=== PATIENT | male | born 1990 | race Caucasian/White ===

== ENCOUNTER 2018-03-05 17:46 | Inpatient (IN) | payer BC ==
[~2018-03-05] VITALS: Ht 180.3 cm; Wt 141.5 kg
[2018-03-05] MEDS ORDERED: DEXAMETHASONE 10 MG/ML VIAL IV ONE (18:15)
[2018-03-05] MEDS ORDERED: SODIUM CHLORIDE 0.9% 1,000 ML IV ONE (18:15)
[2018-03-05] MEDS ORDERED: ACETAMINOPHEN 500MG TABLET PO ONE (18:15)
[2018-03-05] MEDS ORDERED: DIPHENHYDRAMINE 50MG/ML VIAL IV ONE (18:15)
[2018-03-05] MEDS ORDERED: AMPICILLIN SOD/SULBACTAM NA 3 G in SODIUM CHLORIDE 0.9% 100 ML IV SCH (18:15)
[2018-03-05] MEDS ORDERED: VANCOMYCIN 1 G PREMIX 200 ML IV SCH (18:15)
[2018-03-05 19:15] LABS: BASOPHILS % 0.3 % (0.0-2.0); EOSINOPHILS % 5.4 % (0.0-5.0); HEMATOCRIT. 38.3 % (42.0-52.0); HEMOGLOBIN. 13.3 g/dL (14.0-18.0); MEAN CORPUSCULAR VOLUME 80.7 fL (80.0-94.0); MEAN PLATELET VOLUME 6.9 fl (7.4-10.4); MONOCYTES % 4.2 % (2.0-8.0); NEUTROPHILS % 69.1 % (40.0-76.0); PLATELET 297 x1000/uL (130-400); RED BLOOD CELL COUNT 4.74 mill/uL (4.7-6.1); RED CELL DISTRIBUTION WIDTH 13.3 % (11.6-14.6)
[2018-03-05 19:17] LABS: INR 1.1
[2018-03-05 19:18] LABS: CHLORIDE 101 mEq/L (98-107)
[2018-03-05 21:17] LABS: CLARITY URINE CLEAR (CLEAR); COLOR URINE YELLOW (YELLOW); KETONES URINE NEGATIVE (NEGATIVE); LEUKOCYTE ESTERASE URINE NEGATIVE (NEGATIVE); NITRITE URINE NEGATIVE (NEGATIVE); OCCULT BLOOD URINE NEGATIVE (NEGATIVE); PROTEIN URINE NEGATIVE (NEGATIVE); SPECIFIC GRAVITY URINE 1.016 (1.005-1.030); UROBILINOGEN URINE 0.2 E.U./dL (0.2-1.0)
[2018-03-06] VITALS (7 sets, daily range): BP systolic 105–140; BP diastolic 55–80
[2018-03-06] MEDS ORDERED: ACETAMINOPHEN 325MG TABLET PO PRN (05:30)
[2018-03-06] MEDS ORDERED: CEFTRIAXONE 1,000 MG in DEXTROSE 5% WATER 50 ML IV SCH (05:30)
[2018-03-06] MEDS ORDERED: MORPHINE SULFATE 4 MG/ML CPJ (NOT FOR IM USE) IV PRN (05:30)
[2018-03-06] MEDS ORDERED: VANCOMYCIN 1500MG in DEXTROSE 5% WATER 250ML IV SCH (08:00)
[2018-03-06] MEDS ORDERED: CEFTRIAXONE 1 G PREMIX 50 ML IV SCH (09:00)
[2018-03-06] MEDS ORDERED: HEPARIN 5000 UNITS/ML VIAL SUBCUT SCH (09:00)
[2018-03-06 09:45] LABS: BASOPHILS % 0.3 % (0.0-2.0); EOSINOPHILS % 0.1 % (0.0-5.0); HEMATOCRIT. 39.7 % (42.0-52.0); HEMOGLOBIN. 13.7 g/dL (14.0-18.0); LYMPHOCYTES % 26.3 % (20.0-50.0); MEAN CORPUSCULAR HEMOGLOBIN 27.8 pg (28.0-32.0); MEAN CORPUSCULAR VOLUME 80.7 fL (80.0-94.0); MEAN PLATELET VOLUME 6.9 fl (7.4-10.4); NEUTROPHILS % 71.3 % (40.0-76.0); PLATELET 312 x1000/uL (130-400); RED BLOOD CELL COUNT 4.91 mill/uL (4.7-6.1); RED CELL DISTRIBUTION WIDTH 13.5 % (11.6-14.6)
== END 2018-03-06 15:23 | disposition home or self-care (01) | DRG 603 ==
LOC: ER 18:20 → 6EST 22:09 → ENRESERV 22:51
PROVIDERS: ADMIT Internal Medicine; ATTEND Internal Medicine
DX: L03.115 Cellulitis of right lower limb (principal); Z68.41 Body mass index [BMI] 40.0-44.9, adult; E66.9 Obesity, unspecified; F17.200 Nicotine dependence, unspecified, uncomplicated; Z88.1 Allergy status to other antibiotic agents; Z88.2 Allergy status to sulfonamides
CPT/HCPCS: 36415; 80048; 81003; 83605; 83880; 85025; 85610; 87040; 93005; 93971; 96361; 96365; 96375; 99285; J0295; J0696; J1100; J1200; J1644; J3370; J7030; J7050; J7060

== ENCOUNTER 2018-05-07 18:35 | Emergency (ER) | payer BC ==
[~2018-05-07] VITALS: Ht 180.3 cm; Wt 143.0 kg
[2018-05-07 18:46] VITALS: BP 118/65
[2018-05-07 20:30] LABS: CLARITY URINE CLEAR (CLEAR); COLOR URINE YELLOW (YELLOW); KETONES URINE TRACE (NEGATIVE); LEUKOCYTE ESTERASE URINE NEGATIVE (NEGATIVE); NITRITE URINE NEGATIVE (NEGATIVE); OCCULT BLOOD URINE NEGATIVE (NEGATIVE); PROTEIN URINE NEGATIVE (NEGATIVE); SPECIFIC GRAVITY URINE 1.018 (1.005-1.030)
== END 2018-05-08 02:33 | disposition left against medical advice (07) ==
LOC: ER 18:35
DX: R15.2 Fecal urgency (principal); R10.9 Unspecified abdominal pain; R11.0 Nausea; Z88.2 Allergy status to sulfonamides
CPT/HCPCS: 81003; 99283